=== PATIENT | male | born 1985 | race Caucasian/White ===

== ENCOUNTER 2020-07-03 15:04 | Emergency (ER) | payer MEDICAID ==
[~2020-07-03] VITALS: Ht 170.2 cm; Wt 90.0 kg
[2020-07-03] MEDS ORDERED: DOXYCYCLINE HYCLATE 100 MG TABLET PO ONE (16:00)
[2020-07-03] MEDS ORDERED: ACETAMINOPHEN 500 MG TABLET PO ONE (16:00)
[2020-07-03 17:04] VITALS: BP 136/82
== END 2020-07-03 17:27 | disposition home or self-care (01) ==
LOC: EMS 15:08
DX: L03.115 Cellulitis of right lower limb (principal); F17.210 Nicotine dependence, cigarettes, uncomplicated; F11.90 Opioid use, unspecified, uncomplicated; F12.90 Cannabis use, unspecified, uncomplicated
CPT/HCPCS: 93971; Z7502; Z7610

== ENCOUNTER 2022-01-02 21:56 | Emergency (ER) | payer MEDICAID ==
[~2022-01-02] VITALS: Ht 165.1 cm; Wt 90.9 kg
[2022-01-02 22:29] VITALS: BP 131/67
== END 2022-01-02 22:57 | disposition home or self-care (01) ==
LOC: EMS 21:59
DX: I87.8 Other specified disorders of veins (principal); F17.210 Nicotine dependence, cigarettes, uncomplicated; F11.90 Opioid use, unspecified, uncomplicated; F12.90 Cannabis use, unspecified, uncomplicated
CPT/HCPCS: 82962; 99282

== ENCOUNTER 2022-10-21 12:16 | Emergency (ER) | payer MEDICAID ==
[~2022-10-21] VITALS: Ht 170.2 cm; Wt 65.9 kg
[2022-10-21 14:55] LABS: BASOPHILS % (AUTO) 0.3 % (0.0-2.0); EOSINOPHILS % (AUTO) 0.1 % (1.0-6.0); HEMATOCRIT 41.4 % (41-53); HEMOGLOBIN 13.9 g/dL (13.5-17.5); LYMPHOCYTES # (AUTO) 0.7 K/uL (1.0-4.8); LYMPHOCYTES % (AUTO) 4.8 % (22.0-44.0); MEAN CORPUSCULAR HEMOGLOBIN 31.6 pg (26.0-34.0); MEAN CORPUSCULAR HGB CONC 33.6 G/dL (31.0-37.0); MEAN CORPUSCULAR VOLUME 94 fL (80-100); MONOCYTES # (AUTO) 0.4 K/uL (0.1-1.0); MONOCYTES % (AUTO) 2.4 % (2.0-9.0); NEUTROPHILS # (AUTO) 13.6 K/uL (1.8-7.7); PLATELET COUNT (AUTO) 232 K/uL (150-450); RED CELL DISTRIBUTION WIDTH 14.6 % (11.5-14.5)
[2022-10-21 14:56] LABS: NEUTROPHILS % (AUTO) 92.4 % (40.0-70.0)
[2022-10-21 15:18] LABS: ANION GAP 5 mmol/L (8-16); CALCIUM, TOTAL 8.4 mg/dL (8.8-10.5); CARBON DIOXIDE 30 mmol/L (22-29); CHLORIDE 104 mmol/L (98-107); CREATININE 1.08 mg/dL (0.60-1.30); GLUCOSE,RANDOM 124 mg/dL (70-110); POTASSIUM 3.7 mmol/L (3.5-5.1); SODIUM SERUM 139 mmol/L (136-145); UREA NITROGEN, BLOOD 16 mg/dL (7-18)
[2022-10-21 15:22] LABS: GLOMERULAR FILTR. RATE CALC > 60 mL/min (>60)
[2022-10-21 15:26] LABS: ALANINE AMINOTRANSFERASE 27 U/L (12-78); ALBUMIN 3.7 g/dL (3.4-5.0); ALKALINE PHOSPHATASE 132 U/L (46-116); ASPARTATE AMINOTRANSFERASE 46 U/L (15-37); BILIRUBIN,TOTAL 0.2 mg/dL (0.1-1.0); TOTAL PROTEIN, SERUM 7.6 g/dL (6.4-8.2)
[2022-10-21 17:10] LABS: AMPHET/METH SCREEN,URINE NEGATIVE (NEGATIVE); BARBITURATE SCREEN, URINE NEGATIVE (NEGATIVE); BENZODIAZEPINES SCREEN,URINE NEGATIVE (NEGATIVE); CANNABINOID SCREEN,URINE NEGATIVE (NEGATIVE); COCAINE SCREEN,URINE NEGATIVE (NEGATIVE); METHADONE SCREEN, URINE NEGATIVE (NEGATIVE); OPIATE SCREEN,URINE NEGATIVE (NEGATIVE)
[2022-10-21 17:11] LABS: PHENCYCLIDINE SCREEN,URINE NEGATIVE (NEGATIVE)
[2022-10-21 18:00] VITALS: BP 125/65
== END 2022-10-21 18:43 | disposition home or self-care (01) ==
LOC: EMS 12:17
DX: T40.411A Poisoning by fentanyl or fentanyl analogs, accidental (unintentional), initial encounter (principal); I87.8 Other specified disorders of veins; F17.210 Nicotine dependence, cigarettes, uncomplicated; F12.90 Cannabis use, unspecified, uncomplicated; Y92.89 Other specified places as the place of occurrence of the external cause
CPT/HCPCS: 99285; 71045; 80053; 85025; 36415; 93005; 80307 ×2; G0480

== ENCOUNTER 2024-03-04 15:11 | Emergency (ER) | payer MEDICAID ==
[~2024-03-04] VITALS: Ht 157.5 cm; Wt 75.0 kg
[2024-03-04 15:18] VITALS: TEMP 98
[2024-03-04] MEDS ORDERED: AMOX1TAB16 PO (15:48)
[2024-03-04 16:00] VITALS: BP 126/61; PULSE 87; RESP 18
[2024-03-04] MEDS: AMOX TR/POT CLAV 875 MG/125 MG TABLET PO ONE (16:07)
== END 2024-03-04 16:15 | disposition home or self-care (01) ==
LOC: EMS 15:11
DX: S81.852A Open bite, left lower leg, initial encounter (principal); F17.210 Nicotine dependence, cigarettes, uncomplicated; F12.90 Cannabis use, unspecified, uncomplicated; W54.0XXA Bitten by dog, initial encounter; Y93.89 Activity, other specified; Y92.89 Other specified places as the place of occurrence of the external cause; Y99.8 Other external cause status
CPT/HCPCS: 99283

== ENCOUNTER 2024-03-31 19:59 | Emergency (ER) | payer MEDICAID ==
[~2024-03-31] VITALS: Ht 170.2 cm; Wt 85.0 kg
[~2024-03-31 19:59] MED LIST: AMOX-457 PO
[2024-03-31 20:29] VITALS: TEMP 99.3
[2024-03-31] MEDS ORDERED: DOXY-354 PO (23:49)
[2024-03-31] MEDS ORDERED: CEPH-558 PO (23:49)
[2024-03-31] MEDS ORDERED: BACI28.410 TP (23:49)
[2024-03-31 23:52] VITALS: BP 118/71; PULSE 70; RESP 20
== END 2024-04-01 00:17 | disposition home or self-care (01) ==
LOC: MERGE 19:59 → EMS 19:59
DX: L03.116 Cellulitis of left lower limb (principal); F15.21 Other stimulant dependence, in remission; F41.9 Anxiety disorder, unspecified
CPT/HCPCS: 11042; 99285; Z7502